=== PATIENT | male | born 1980 | race Caucasian/White ===

== ENCOUNTER 2017-03-31 14:18 | Day surgery (SDC) | payer OTHER ==
[~2017-03-31] VITALS: Ht 180.3 cm; Wt 68.5 kg
[2017-03-31] MEDS ORDERED: ATIVAN (14:39)
[2017-03-31] MEDS ORDERED: NEXIUM (14:39)
[2017-03-31 14:40] VITALS: Ht 180.3 cm; Wt 68.5 kg
[2017-03-31 15:12] VITALS: BP 132/71; PULSE 74; RESP 12
[2017-03-31] MEDS ORDERED: LIDOCAINE 4% SOLUTION 50 ML BTL ONE (15:15)
[2017-03-31] MEDS ORDERED: CEFAZOLIN 1 GM/50 ML (PMX) 50 ML IVPB ONE (15:18)
--- NOTE | 2017-03-31 16:02 | OPPN ---
Date/Time of Note Date/Time of Note DATE: 03/31/17 TIME: 15:59 Operative Report Preoperative Diagnosis OCCULT BLEEDING ABDOMINAL PAIN Postoperative Diagnosis MULTIPLE EROSIONS IN STOMACH OOZING BLOOD Operation/Procedure Performed EGD BX Provider: KARIN DIALLO MD Anesthesia Type: moderate sedation (VERSED 3MG/FENTANYL 75 MCG/ANCEF IGM PRE OP ) Estimated blood loss: 0 - 10 ml's (EROSIONS ARE OOZING BLOOD) Transfusion Required: no Specimen: none Grafts/Implants: none Complications: no KARIN DIALLO MD Mar 31, 2017 16:02
--- NOTE | 2017-03-31 16:06 | OPPN ---
Date/Time of Note Date/Time of Note DATE: 03/31/17 TIME: 16:03 Operative Report Preoperative Diagnosis OCCULT BLEEDING ABDOMINAL PAIN WT LOSS Postoperative Diagnosis NORMAL COLONOSCOPY Operation/Procedure Performed COLONOSCOPY Provider: KARIN DIALLO MD Anesthesia Type: moderate sedation (VERSED 2MG/FENTANYL 25MCG /DEMORAL 50 MG) Estimated blood loss: none Transfusion Required: no Specimen: none Grafts/Implants: none Complications: no KARIN DIALLO MD Mar 31, 2017 16:06
[2017-03-31] MEDS ORDERED: MIDAZOLAM 1 MG/ML 2 ML INJ ONE ×3 (16:08)
[2017-03-31] MEDS ORDERED: FENTAnyl 50 MCG/ML VIAL ONE (16:08)
[2017-03-31] MEDS ORDERED: MEPERIDINE 50 MG INJ ONE (16:09)
[2017-03-31 16:29] VITALS: BP 128/87; PULSE 90; RESP 12
--- NOTE | 2017-03-31 17:44 | GILP ---
DATE OF PROCEDURE: 03/31/2017 PREOPERATIVE DIAGNOSIS: Occult bleeding with abdominal pain. PROCEDURE PERFORMED: EGD and biopsy. POSTOP DIAGNOSIS: Multiple erosions in the stomach, oozing blood with gastritis. Esophagus normal and duodenal normal. DESCRIPTION OF PROCEDURE: The patient was put in left lateral decubitus. After obtaining informed consent, he was given 1 g of Ancef preop because of the titanium joy in the neck at C4 level and he was also given a posterior pharynx to be anesthetized with 4 percent xylocaine gargle. He received totally Versed 3 mg IV and fentanyl 75 mcg, and then advanced a Olympus video upper endoscope into the esophagus, stomach and duodenum up to second part. The esophagus is normal. Maybe mild esophagitis at the GE junction, but not significant. No hiatal hernia in the stomach. There was gastritis quite moderate to severe. In the antrum, especially and in the body. Multiple erosions oozing slowly blood. Fundus was unremarkable. Random biopsies were done to rule out any H. pylori. Duodenum, the duodenal bulb showed mild duodenitis, but first and second part unremarkable. The scope was withdrawn. Patient had no complication. PLAN: Will be to advise him to avoid aspirin and NSAID medications and alcohol. Place him on Carafate, as he is already taking Nexium it will be continued and he will be advised to follow up for biopsy report in 2 weeks in the office. Proceed with colonoscopy as planned. Dictated By: Juan Manuel Naranjo MD /[email or web address] /Document#: [id number] ; Primary Care Physician
--- NOTE | 2017-03-31 21:26 | GILP ---
DATE OF PROCEDURE: 03/31/2017 PREOPERATIVE DIAGNOSIS: Occult bleeding, abdominal pain, and weight loss. PROCEDURE PERFORMED: After EGD, colonoscopy. POSTOPERATIVE DIAGNOSIS: Normal colonoscopy. DESCRIPTION OF PROCEDURE: After obtaining informed consent, after EGD, further monitoring with the EKG, oximetry continued, and he was given 2 mg IV Versed, fentanyl 25 mcg, and Demerol 50 mg IV. Rectal examination done. In the examination, I advanced Olympus video colonoscope all the way to the cecum. The ileocecal valve, appendiceal opening identified. Cecum, ascending colon, transverse colon, descending colon, sigmoid colon, rectum, essentially normal. No colitis. No evidence of any polyps or any other lesions noted. Postop the patient had no complication. PLAN: Will be to follow him for his biopsy report on the stomach, and meanwhile he was advised to continue with Nexium and Carafate. Apparently he is also on Ativan on a p.r.n. basis. He will continue. He was advised to stop any aspirin or NSAIDs or alcohol. Dictated By: Juan Manuel Naranjo MD /[email or web address] /Document#: [id number]
== END 2017-03-31 16:57 | disposition home or self-care (01) ==
LOC: GIL 14:18
PROVIDERS: ATTEND Internal Medicine
DX: K92.1 Melena (principal); K29.70 Gastritis, unspecified, without bleeding
CPT/HCPCS: 43239; 45378; 88305; 88312; J0690; J2175; J2250; J3010; Z7610